=== PATIENT | female | born 1975 | race Two or more races ===

== ENCOUNTER 2019-07-05 10:19 | Emergency (ER) | payer SELFPAY ==
[2019-07-05] MEDS ORDERED: IPRATROPIUM/ALBUTEROL 0.5-2.5 MG/3 ML AMPUL NEB ONE (10:29)
--- NOTE | 2019-07-05 10:30 | ER Document Report ---
ED Medical Screen (RME) - General Chief Complaint: Chest Congestion Stated Complaint: FLU SYMPTOMS Time Seen by Provider: 07/05/19 10:25 Mode of Arrival: Ambulatory Information source: Patient Notes: Patient presents complaining of being sick for the past week. Patient has had nausea vomiting and diarrhea although last emesis and last stool was yesterday. Patient complains of chest tightness since yesterday. Patient does report occasional wheezing. Cough has been productive. No fever. I have greeted and performed a rapid initial assessment of this patient. A comprehensive ED assessment and evaluation of the patient, analysis of test results and completion of the medical decision making process will be conducted by additional ED providers. TRAVEL OUTSIDE OF THE [place] IN LAST 30 DAYS: No Physical Exam - Vital signs Vitals: Temp Pulse Resp BP Pulse Ox 98.2 F 88 16 150/92 H 97 07/05/19 10:23 07/05/19 10:23 07/05/19 10:23 07/05/19 10:23 07/05/19 10:23 - Respiratory Respiratory status: No respiratory distress Chest status: Pain with deep breathing Breath sounds: Nonproductive cough, Wheezing - Faint scattered Course - Vital Signs Vital signs: Temp Pulse Resp BP Pulse Ox 98.2 F 88 16 150/92 H 97 07/05/19 10:23 07/05/19 10:23 07/05/19 10:23 07/05/19 10:23 07/05/19 10:23
[2019-07-05] MEDS ORDERED: GUAIFENESIN/CODEINE PHOS 100-10 MG/ 5 ML UDC PO ONE (11:43)
[2019-07-05] MEDS ORDERED: ALBUTEROL SULFATE HFA (90 MCG/PUFF) 8 GM MDI (1 MDI/ER DISP) IH PRN (11:43)
[2019-07-05] MEDS ORDERED: PREDNISONE 20 MG TABLET PO ONE (11:43)
[2019-07-05] MEDS ORDERED: ONDANSETRON 4 MG TAB.RAPDIS PO ONE (11:44)
[2019-07-05] MEDS ORDERED: LOPERAMIDE HCL 2 MG CAPSULE PO ONE (11:44)
--- NOTE | 2019-07-05 11:46 | RADIOLOGY REPORT (SQ) ---
EXAM DESCRIPTION: CHEST 2 VIEWS COMPLETED DATE/TIME: 07/05/2019 11:31 am REASON FOR STUDY: cough COMPARISON: None. EXAM PARAMETERS: NUMBER OF VIEWS: two views TECHNIQUE: Digital Frontal and Lateral radiographic views of the chest acquired. RADIATION DOSE: NA LIMITATIONS: none FINDINGS: LUNGS AND PLEURA: Left suprahilar asymmetry. Question infiltrate or mass. Right lung is clear. MEDIASTINUM AND HILAR STRUCTURES: No masses or contour abnormalities. HEART AND VASCULAR STRUCTURES: Heart normal size. No evidence for failure. BONES: No acute findings. HARDWARE: None in the chest. OTHER: No other significant finding. IMPRESSION: Infiltrate versus mass in the left upper lobe. TECHNICAL DOCUMENTATION: JOB ID: [id number] [employer]- All Rights Reserved Reading location - IP/workstation name: [email or web address]
--- NOTE | 2019-07-05 11:50 | ER Document Report ---
ED General - General Chief Complaint: Chest Congestion Stated Complaint: FLU SYMPTOMS Time Seen by Provider: 07/05/19 10:25 Mode of Arrival: Ambulatory Information source: Patient, Relative, [facility] Records Notes: 43-year-old female with no reported past medical history presents with complaint of cough, nasal congestion, ear fullness, sore throat, nausea, vomiting and diarrhea that have been ongoing for approximately 1 week. Patient states that she has had a nonproductive persistent cough associated with chest tightness. Patient states that she has had multiple episodes of vomiting and diarrhea which she states has been nonbloody. Patient denies fever, chills, chest pain, abdominal pain. She has had sick contacts with children who have had similar symptoms. Patient is a smoker. TRAVEL OUTSIDE OF THE [place] IN LAST 30 DAYS: No - HPI Onset: Other Onset/Duration: Gradual, Persistent Quality of pain: Achy, Other - Chest tightness Severity: Mild Associated symptoms: Nonproductive cough, Diarrhea, Earache, Nausea, Vomiting, Rhinnorhea, Sinus pain/drainage, Sore throat Exacerbated by: Denies Relieved by: Denies Similar symptoms previously: Yes Recently seen / treated by doctor: No - Related Data Allergies/Adverse Reactions: No Known Allergies Allergy (Verified 07/05/19 10:54) Past Medical History - General Information source: Patient - Social History Smoking Status: Current Every Day Smoker Cigarette use (# per day): Yes - 10 Smoking Education Provided: Yes - Smoking cessation counseling was provided for 4 minutes at the bedside Frequency of alcohol use: None Drug Abuse: None Lives with: Family Family History: Reviewed & Not Pertinent Patient has suicidal ideation: No Patient has homicidal ideation: No - Medical History Medical History: Negative Past Surgical History: Reports: Hx Cholecystectomy Review of Systems - Review of Systems Constitutional: Malaise, Recent illness. denies: Fever EENT: Ear pain, Nose congestion, Sinus pressure, Throat pain. denies: Blurred vision Cardiovascular: denies: Chest pain, Palpitations, Orthopnea Respiratory: Cough Gastrointestinal: Diarrhea, Nausea, Vomiting. denies: Abdominal pain, Blood streaked bowels, Poor fluid intake Genitourinary: denies: Dysuria Musculoskeletal: denies: Back pain, Muscle pain Skin: denies: Rash Hematologic/Lymphatic: denies: Easy bleeding Neurological/Psychological: denies: Confusion, Lost consciousness, Headaches -: Yes All other systems reviewed and negative Physical Exam - Vital signs Vitals: Temp Pulse Resp BP Pulse Ox 98.2 F 88 16 150/92 H 97 07/05/19 10:23 07/05/19 10:23 07/05/19 10:23 07/05/19 10:23 07/05/19 10:23 - Notes Notes: PHYSICAL EXAMINATION: GENERAL: Well-appearing, well-nourished and in no acute distress. HEAD: Atraumatic, normocephalic. EYES: Pupils equal round and reactive to light, extraocular movements intact, conjunctiva are normal. ENT: Nares patent, oropharynx clear without exudates. Moist mucous membranes. NECK: Normal range of motion, supple with anterior cervical lymphadenopathy LUNGS: Breath sounds clear to auscultation bilaterally and equal. No wheezes rales or rhonchi. HEART: Regular rate and rhythm without murmurs ABDOMEN: Soft, nontender, nondistended abdomen. No guarding, no rebound. No masses appreciated. Female : deferred Musculoskeletal: Normal range of motion, no pitting or edema. No cyanosis. NEUROLOGICAL: Cranial nerves grossly intact. Normal speech, normal gait. Normal sensory, motor exams PSYCH: Normal mood, normal affect. SKIN: Warm, Dry, normal turgor, no rashes or lesions noted. Course - Re-evaluation Re-evalutation: Temp Pulse Resp BP Pulse Ox 98.2 F 88 16 150/92 H 97 07/05/19 10:23 07/05/19 10:23 07/05/19 10:23 07/05/19 10:23 07/05/19 10:23 07/05/19 11:48 Presentation is most consistent with a viral upper respiratory infection. Patient is overall well appearance, vitals within normal limits, well-hydrated. Patient denies any headache, neck pain, and has no evidence of meningismus on examination. Lungs are clear bilaterally. No evidence of respiratory distress. Based on clinical exam and history, I do not suspect an acute pneumonia, meningitis, strep pharyngitis, or an acute encephalitis. No laboratory or imaging testing is indicated at this time. Will discharge patient with return precautions and followup recommendations. They are in agreement this plan have verbalized understanding return precautions. - Vital Signs Vital signs: Temp Pulse Resp BP Pulse Ox 98.2 F 88 16 150/92 H 97 07/05/19 10:23 07/05/19 10:23 07/05/19 10:23 07/05/19 10:23 07/05/19 10:23 - Diagnostic Test Radiology reviewed: Image reviewed Discharge - Discharge Clinical Impression: URI with cough and congestion, Elevated blood pressure reading Nausea & vomiting Qualifiers: Vomiting type: unspecified Vomiting Intractability: non-intractable Qualified Code(s): R11.2 - Nausea with vomiting, unspecified Condition: Good Disposition: HOME, SELF-CARE Instructions: Diarrhea, Nonspecific ([facility]), Antinausea Medication ([facility]), Upper Respiratory Illness ([facility]), Viral Syndrome ([facility]), Vomiting ([facility]) Additional Instructions: Your symptoms are most likely due to a viral infection it should resolve over the next 7-14 days. You should take [id number] guanfacine per bottle instructions to help thin the mucus. For nasal congestion: I would recommend that you get [id number] oxymetazoline also known is afrin. Use only per bottle instructions and be sure to never use this for more than 3 days if you can develop severe rebound congestion. You may also use tylenol or ibuprofen as needed for aches and thorat discomfort. Please be sure to drink plenty of fluids and get rest. Return to the emergency department he began having difficulty breathing, chest pain, persistent vomiting, or any other symptoms that are concerning to you. Your symptoms are likely due to a viral illness and should resolve in the next several days. You can take [id number] loperamide also known as Imodium as needed for diarrhea per box instructions. Continue to stay hydrated with plenty of solution such as Gatorade or Pedialyte. You are being prescribed Zofran to take as needed for nausea and vomiting. Please return if you develop severe abdominal pain, pass out, become unable to tolerate any oral fluids for 12 more hours, or any other symptoms that are concerning to you. Follow up with your [id number] hours for further care or return to the ED IMMEDIATELY if symptoms worsen or you have any concerns. If you cannot afford to follow up with your primary care physician a list of low cost clinics have been provided at the end of your discharge papers as well. Most prescribed medications have multiple side effects. The safest thing to do is when filling your prescription speak to your pharmacist regarding possible interactions with your normal home medications and over the counter medications such as Ibuprofen, Tylenol, Benadryl. If you experience any symptoms that cause you discomfort or concern you should discontinue the medication immediately and return to the emergency room or call your primary care physician. Prescriptions: Guaifenesin/Codeine Phos [Robitussin-AC Syrup 59 ml] 10 ml PO QHS #50 ml Prednisone [Deltasone 20 mg Tablet] 3 tab PO DAILY 5 Days #15 tablet Ondansetron [Zofran Odt 4 mg Tablet] 1 - 2 tab PO Q4H PRN #15 tab.rapdis PRN Reason: For Nausea/Vomiting Forms: Elevated Blood Pressure, Smoking Cessation Education, Return to Work
[2019-07-05 12:13] VITALS: BP 141/87
--- NOTE | 2019-07-05 13:09 | EKG REPORT ---
SEVERITY:- BORDERLINE ECG - SINUS RHYTHM BORDERLINE INFERIOR Q WAVES : Confirmed by: Corry Palacios MD 05-Jul-2019 13:08:55
== END 2019-07-05 12:13 | disposition home or self-care (01) ==
LOC: ER 10:19
DX: J06.9 Acute upper respiratory infection, unspecified (principal); R05 Cough; R09.81 Nasal congestion; R03.0 Elevated blood-pressure reading, without diagnosis of hypertension; R09.89 Other specified symptoms and signs involving the circulatory and respiratory systems; R11.2 Nausea with vomiting, unspecified; J02.9 Acute pharyngitis, unspecified; R19.7 Diarrhea, unspecified; R53.81 Other malaise; F17.210 Nicotine dependence, cigarettes, uncomplicated
CPT/HCPCS: 93005; 99406; 94640; 99283; 71046; 93010; S0119; J7512; J3490; J7620